=== PATIENT | male | born 1990 | race Caucasian/White ===

== ENCOUNTER 2019-07-12 11:39 | Emergency (ER) | payer OTHER, SELFPAY ==
[2019-07-12 11:54] VITALS: BP 126/68; PULSE 101; RESP 20; TEMP 38.9; O2SAT 98
--- NOTE | 2019-07-12 12:58 | ED.URI ---
HPI - URI/Sore Throat General Chief Complaint: Upper Respiratory Infection Stated Complaint: Sore Throat,Congestion Time Seen by Provider: 07/12/19 12:58 Source: patient and RN notes reviewed Mode of arrival: ambulatory Limitations: no limitations History of Present Illness HPI Narrative: 28 year old male who presents to [facility] care with one day history of sore throat, congestion, fever and body aches with fatigue. Patient states that he has cough of productive green mucous and nasal drainage that is yellowish in color with fevers, chills, and sweats. Patient states that he did not take a flu immunization this season. Patient denies any shortness of breath or any wheezing, respirations even and non labored with SAO2 98% on room air. Patient denies any history of asthma or tobacco use. MD elicited complaint: fever, cough, sore throat, rhinorrhea, nasal congestion and other (bodyaches) Onset (ago): day(s) (1) Consistency: constant Severity: moderate Pain scale (0-10): 7 Description of mucous: yellow and green Able to tolerate fluids by mouth: Yes Exacerbating factors: swallowing and exertion Relieving factors: nothing Associated symptoms: fever, chills, myalgias, rhinorrhea, nasal congestion, sore throat and cough Treatments prior to arrival: none Related Data Allergies Allergy/AdvReac Type Severity Reaction Status Date / Time No Known Allergies Allergy Verified 07/12/19 12:01 Review of Systems Review of Systems: Narrative: CONSTITUTIONAL:Positive fever, chills, or sweats. EYES: Denies visual changes, redness, or discharge. ENT:Positive rhinorrhea, congestion, sore throat, no otalgia. CARDIOVASCULAR: Denies chest pain, palpitations, or edema. RESPIRATORY: Positive for cough denies dyspnea. GASTROINTESTINAL: Denies abdominal pain, nausea, vomiting, or diarrhea. GENITOURINARY: Denies dysuria or hematuria. SKIN: Denies rash or itching. MUSCULOSKELETAL: Denies back pain, joint pain, positive bodyaches NEUROLOGIC: Denies headache, numbness, or weakness. PSYCHIATRIC: Denies anxiety or depression. All systems reviewed & are unremarkable except as noted in HPI and below PMFSH Past Medical History Medical History (Updated 07/16/19 @ 17:02 by Bessie Howell NP) No significant past medical history Social History Social History (Updated 07/16/19 @ 17:01 by Bessie Howell NP) Smoking status: Never smoker Living arrangements: with family Gender identity (if verbalized by the patient): Male Comments At time of signature, agree with nursing past medical, social history. There is no relevant family history pertinent to the presenting complaint Exam Narrative: Exam Narrative: GENERAL: ill-appearing, well-nourished, and in no acute distress. HEAD: Normocephalic, atraumatic. EYES: PERRLA and EOMI. ENT: Nares red,clear yellowish rhinorrhea no epistaxis. Mucous membranes moist.TM's normal with good light reflex, throat red with no lesions or exudates, mild tonsil enlargement NECK: Supple. no lymphadenopathy, SAO2 98% on room air. CHEST: Clear to auscultation. No respiratory distress.productive cough HEART: Regular rate and rhythm. No murmur heard. Normal peripheral pulses. ABDOMEN: Soft, nontender, nondistended, normal active bowel sounds. EXTREMITIES: Normal range of motion. No edema. SKIN: Warm, dry, no rash. NEURO: No focal deficits. Alert and oriented x3. Course Vital Signs Vital signs: Vital Signs Temperature 38.9 C H 07/12/19 11:54 Pulse Rate 101 H 07/12/19 11:54 Respiratory Rate 07/12/19 11:54 Blood Pressure 126/68 07/12/19 11:54 Pulse Oximetry 98 07/12/19 11:54 Temperature 38.9 C H 07/12/19 11:54 Pulse Rate 101 H 07/12/19 11:54 Respiratory Rate 20 07/12/19 11:54 Blood Pressure 126/68 07/12/19 11:54 Pulse Oximetry 98 07/12/19 11:54 MDM - URI/Sore Throat Differential Diagnosis Differential diagnosis: Likely upper respiratory infection, viral infection, influenza and oth
== END 2019-07-12 13:19 | disposition home or self-care (01) ==
PROVIDERS: Emergency Provider Registered Nurse
DX: J10.1 Influenza due to other identified influenza virus with other respiratory manifestations (principal)
CPT/HCPCS: 87804; 99203; G0463

== ENCOUNTER 2021-01-23 07:35 | Outpatient (CLI) | payer OTHER, SELFPAY ==
--- NOTE | 2021-01-23 | ECG_ITS ---
Measurements Intervals [facility] Rate: 78 P: 60 AR: 169 QRS: 89 QRSD: 115 T: 50 QT: 354 QTc: 404 Interpretive Statements SINUS RHYTHM WITH SINUS ARRHYTHMIA INCOMPLETE RIGHT BUNDLE BRANCH BLOCK MINIMAL Q WAVES- INFERIOR LEADS BORDERLINE ECG Electronically Signed On 01-23-2021 9:21:03 CDT by Haider Bowden D.O.
--- NOTE | 2021-01-28 13:37 | WPDHOLTEREM ---
Holter/Event Monitor Holter/Event Monitor Date of procedure: 01/23/21 Holter/Event Procedure: 24 Hr Holter Monitor Indications: Palpitations Conclusion: 1. 24 hour holter monitor on 01/23/21. 2. Underlying rhythm is sinus rhythm. HR range 42-154 bpm; average HR 70 bpm. 3. No premature supraventricular complexes. No supraventricular tachycardia. 4. There are 1,132 premature ventricular complexes, 59 ventricular bigeminy and 167 ventricular trigeminy. No ventricular tachycardia. 5. No sinoatrial or atrioventricular blocks. No significant pauses greater than 2 seconds. 6. Patient reports symptoms of chest pain, heart racing, feverish, shakiness, hard heart beat, chest tightness which demonstrate sinus rhythm, HR range 67-96 bpm and 5 episodes with PVC's
== END 2021-01-23 07:36 | disposition home or self-care (01) ==
LOC: ANHCARD 07:39
PROVIDERS: PCP Family Medicine; Visit Provider Family Medicine
DX: R00.8 Other abnormalities of heart beat (principal)
CPT/HCPCS: 93005; 93225; 93226

== ENCOUNTER 2021-01-24 14:01 | Outpatient (CLI) | payer OTHER, SELFPAY ==
[2021-01-24 14:38] LABS: Basophils Percent Auto 0.7 % (0.2-1.2); Eosinophils Absolute Auto 0.3 K/mm3 (0-0.3); Eosinophils Percent Auto 5.3 % (0-4.4); Hematocrit 44.5 % (42.0-52.0); Hemoglobin 14.9 g/dL (14.0-18.0); Immature Granulocyte Absolute 0.01 K/mm3 (0.00-0.031); Immature Granulocyte Percent A 0.2 % (0-0.5); Lymphocytes Absolute Auto 2.07 K/mm3 (0.9-3.2); Lymphocytes Percent Auto 36.5 % (18.3-44.2); Mean Corpuscular HGB Conc 33.5 g/dl (32-36); Mean Corpuscular Hemoglobin 29.2 pg (26-34); Mean Corpuscular Volume 87.3 fl (80-100); Mean Platelet Volume 11.9 fl (7.4-10.4); Monocytes Absolute Auto 0.4 K/mm3 (0.1-0.6); Monocytes Percent Auto 6.5 % (2.6-8.5); Neutrophils Absolute Auto 2.9 K/mm3 (1.3-6.7); Neutrophils Percent Auto 50.8 % (45.5-73.1); Platelet Count Result 213 k/mm3 (150-375); Red Cell Distribution Width 12.3 % (11.5-14.5); White Blood Count 5.7 K/mm3 (4.5-10.0)
[2021-01-24 15:02] LABS: LDL Cholesterol Direct 68 mg/dL
[2021-01-24 16:21] LABS: Alanine Aminotransferase 19 U/L (4-50); Albumin Level 4.6 g/dL (3.5-5.1); Alkaline Phosphatase 53 U/L (38-126); Anion Gap 9 mmol/L (8-16); Aspartate Amino Transferase 27 U/L (17-59); Bilirubin,Total 0.8 mg/dL (0.2-1.3); Blood Urea Nitrogen 11 mg/dL (9-20); Calcium 9.5 mg/dL (8.4-10.2); Carbon Dioxide 23 mmol/L (22-30); Chloride 104 mmol/L (98-107); Cholesterol 166 mg/dL (0-200); Estimated Glomerular Filt Rate > 60; Glucose 40 mg/dL (65-110); HDL Direct 64 mg/dL; Potassium 4.2 mmol/L (3.4-5.0); Sodium 136 mmol/L (137-145); Triglycerides 38 mg/dL (<150)
== END 2021-01-24 14:02 | disposition home or self-care (01) ==
PROVIDERS: PCP Family Medicine; Visit Provider Family Medicine
DX: R00.8 Other abnormalities of heart beat (principal)
CPT/HCPCS: 36415; 80053; 80061; 84443; 85025

== ENCOUNTER 2021-01-28 14:33 | Outpatient (CLI) | payer OTHER, SELFPAY ==
[2021-01-28 15:11] LABS: Alanine Aminotransferase 29 U/L (4-50); Albumin Level 4.7 g/dL (3.5-5.1); Alkaline Phosphatase 70 U/L (38-126); Anion Gap 9 mmol/L (8-16); Aspartate Amino Transferase 26 U/L (17-59); Bilirubin,Total 0.3 mg/dL (0.2-1.3); Blood Urea Nitrogen 10 mg/dL (9-20); Calcium 9.7 mg/dL (8.4-10.2); Carbon Dioxide 28 mmol/L (22-30); Chloride 103 mmol/L (98-107); Cholesterol 182 mg/dL (0-200); Estimated Glomerular Filt Rate > 60; Glucose 69 mg/dL (65-110); HDL Direct 68 mg/dL; Sodium 140 mmol/L (137-145); Triglycerides 97 mg/dL (<150)
[2021-01-28 15:22] LABS: LDL Cholesterol Direct 80 mg/dL
[2021-01-28 15:51] LABS: Hemoglobin A1C 5.2 % (<5.7)
== END 2021-01-28 14:34 | disposition home or self-care (01) ==
LOC: ANHLAB 14:37
PROVIDERS: PCP Family Medicine; Visit Provider Family Medicine
DX: E16.2 Hypoglycemia, unspecified (principal)
CPT/HCPCS: 36415; 80053; 80061; 83036

== ENCOUNTER 2021-03-17 07:19 | Outpatient (CLI) | payer OTHER, SELFPAY ==
--- NOTE | 2021-03-17 | ECHO_ITS ---
Patient Info Name: Tano Moses Age: 30 years : 1990 Gender: Male Ht: 74 in Wt: 165 lbs BSA: 1.97 m2 HR: 57 bpm BP: 126 / 77 mmHg Heart Rhythm: Sinus Rhythm Technical Quality: Fair Exam Date: 03/17/2021 7:38 AM Exam Location: [facility] Patient Status: Outpatient Admit Date: 03/17/2021 Staff Ordering Physician: Marina Varghese Take Down Inspector: Fabiola Stephenson RDCS Attending Provider: Marina Varghese Referring Physician: Abimael HERNANDEZ; Exam Type: CA echo doppler color flow Study Info Indications I49.3 - Ventricular premature depolarization Complete two-dimensional, color flow and Doppler transthoracic echocardiogram is performed. Summary 1. Complete two-dimensional, color flow and Doppler transthoracic echocardiogram is performed. 2. Unremarkable 2D and Doppler echocardiogram. Left Ventricle Left ventricular chamber dimension is normal. Left ventricular systolic function is normal, estimated at 55-60%. The left ventricular diastolic function is normal. Right Ventricle Right ventricular chamber dimension is normal. Left Atria Left atrial chamber dimension is normal. Right Atria Right atrial chamber dimension is normal. Aortic Valve The aortic valve is normal. Pulmonic Valve The pulmonic valve is normal. Mitral Valve The mitral valve has normal leaflets. Tricuspid Valve The tricuspid valve leaflets are normal. Pericardium/Pleural The pericardium appears normal. Aorta The aortic root size at the sinus of Valsalva is normal. Left Ventricular Outflow Tract Name Value Normal LVOT 2D LVOT Diameter 2.1 cm LVOT Doppler LVOT Peak Gradient 4 mmHg LVOT Mean Gradient 2 mmHg LVOT VTI 21 cm LVOT VTI/AV VTI Ratio 1.0 LVOT Stroke Volume 72 ml LVOT CO 4.6 l/min LVOT CI 2.3 l/min/m2 Pulmonic Valve Name Value Normal RVOT Doppler RVOT Peak Gradient 2 mmHg PV Doppler PV Peak Gradient 3 mmHg Mitral Valve Name Value Normal MV Doppler MV Decel [place] 734 cm/s2 MV PHT 41 ms MV Area (PHT) 5.3 cm2 4.0-5.0 MV Diastolic Function MV E Peak Velocity 105 cm/s
== END 2021-03-17 07:20 | disposition home or self-care (01) ==
PROVIDERS: PCP Family Medicine
DX: I49.3 Ventricular premature depolarization (principal)
CPT/HCPCS: 93306

== ENCOUNTER 2021-07-02 14:18 | Outpatient (CLI) | payer OTHER, SELFPAY ==
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
== END 2021-07-02 14:19 | disposition home or self-care (01) ==
LOC: ANHIMG 14:22
PROVIDERS: PCP Family Medicine; Visit Provider Family Medicine
DX: M54.50 Low back pain, unspecified (principal)
CPT/HCPCS: 72100